=== PATIENT | female | born 1930 | race Caucasian/White ===

== ENCOUNTER 2018-05-18 08:39 | Emergency (ER) | payer OTHER ==
[~2018-05-18] VITALS: Ht 149.9 cm; Wt 45.4 kg
[~2018-05-18 08:39] MED LIST: ARI5 PO; ARICEPT5 MG PO; ASPIR 8181 MG PO; AUG250L; BACTRIM DS1 TAB PO; COLACE100 MG PO; COMPLETE SENIOR1 TA1 PO; FERROUS SULFAT325 M2 PO; HYDROCHLOROTHIA25 MG PO; LAC PO; LIPI10 PO; LISINOPRIL20 MG PO; LOPERAMIDE2 MG PO; MAPAP500 M2 PO; MAPAP500 MG PO; METOPROLOL SUCC25 M1 PO; MILK OF MA400 MG/5 M PO; OLANZAPINE10 MG PO; SERTRALINE HYDR50 M1 PO; TOPROL XL25 MG; TOPROL XL25 MG PO; TRIPLE ANTIBIOT TP; ZESTRIL20 MG PO; ZOLOFT50 MG PO
[2018-05-18 08:46] VITALS: Ht 149.9 cm; Wt 45.4 kg
[2018-05-18 12:14] VITALS: BP 100/57
== END 2018-05-18 12:14 | disposition home or self-care (01) ==
LOC: ED 08:39
DX: S81.811A Laceration without foreign body, right lower leg, initial encounter (principal); I10 Essential (primary) hypertension; F03.90 Unspecified dementia, unspecified severity, without behavioral disturbance, psychotic disturbance, mood disturbance, and anxiety; Z86.73 Personal history of transient ischemic attack (TIA), and cerebral infarction without residual deficits; Z88.6 Allergy status to analgesic agent
CPT/HCPCS: 90715; J2001; Q0092